=== PATIENT | female | born 1955 | race Caucasian/White ===

== ENCOUNTER → 2023-10-13 | Outpatient (CLI) | payer MEDICARE ==
[2023-10-11 14:05] LABS: ALANINE AMINOTRANSFERASE 23 U/L (12-78); ALBUMIN 3.5 G/DL (3.4-5.0); ALBUMIN/GLOBULIN RATIO 1.1 (1.1-1.5); ALKALINE PHOSPHATASE 105 IU/L (46-116); ANION GAP 8 (8-16); ASPARTATE AMINO TRANSFERASE 28 U/L (10-37); BILIRUBIN,TOTAL 0.4 MG/DL (0.1-1.0); BLOOD UREA NITROGEN 6 MG/DL (7-18); BUN/CREATININE RATIO 8.7 (10.0-20.0); CALCIUM 8.4 MG/DL (8.5-10.1); CHLORIDE 93 MMOL/L (99-107); CREATININE 0.69 MG/DL (0.40-0.90); POTASSIUM 3.6 MMOL/L (3.5-5.1); SODIUM 127 MMOL/L (135-145); TOTAL CARBON DIOXIDE 25.7 MMOL/L (24-32); TOTAL PROTEIN 6.8 G/DL (6.4-8.2); eGFR 84 ML/MIN
[2023-10-11 14:13] LABS: GLUCOSE 88 MG/DL (70-104)
[~2023-10-13] MED LIST: iohexol 300mg/ml 100ml inj. ONE
== END | disposition home or self-care (01) ==
LOC: RAD 09:38
PROVIDERS: ATTEND Family Medicine
DX: K57.32 Diverticulitis of large intestine without perforation or abscess without bleeding (principal)
CPT/HCPCS: 36415; 74177; 80053; J3490; Q9967

== ENCOUNTER 2023-12-22 08:07 | Day surgery (SDC) | payer MEDICARE ==
[~2023-12-22] VITALS: Ht 160 cm; Wt 60.0 kg
[~2023-12-22 08:07] MED LIST changes: +ACET325C6 PO; +ALBU10.7; +SODI1TAB2 PO; -iohexol 300mg/ml 100ml inj. ONE
[2023-12-22 08:37] VITALS: BP 156/68; PULSE 71; RESP 18
[2023-12-22] MEDS ORDERED: MIDAZolam 1 MG/ML 5ML VIAL ONE (09:15)
[2023-12-22] MEDS ORDERED: fentaNYL/PF 50MCG/1 ML 2ML syringe ONE (09:15)
[2023-12-22] MEDS ORDERED: diphenhydrAMINE 50 mg/ml inj ONE (09:15)
[2023-12-22 10:15] VITALS: BP 113/54; PULSE 74; RESP 15; O2SAT 99
[2023-12-22 10:25] VITALS: BP 114/55; PULSE 74; RESP 16; O2SAT 98
[2023-12-22 10:35] VITALS: BP 121/60; PULSE 74; RESP 16; O2SAT 99
[2023-12-22 10:45] VITALS: BP 118/63; PULSE 71; RESP 20; O2SAT 99
== END 2023-12-22 11:05 | disposition home or self-care (01) ==
LOC: GI LAB 08:07
PROVIDERS: ATTEND Internal Medicine Gastroenterology
DX: R19.7 Diarrhea, unspecified (principal); K63.5 Polyp of colon; K21.9 Gastro-esophageal reflux disease without esophagitis; K57.30 Diverticulosis of large intestine without perforation or abscess without bleeding; K44.9 Diaphragmatic hernia without obstruction or gangrene; K29.70 Gastritis, unspecified, without bleeding
CPT/HCPCS: 43239; 45385; 99153; A4620; C1889; G0500; J1200; J2250; J3010; J7030; Z7512; 88305; 99152